=== PATIENT | female | born 2000 | race Two or more races ===

== ENCOUNTER 2019-11-20 00:36 | Inpatient (IN) | payer OTHER ==
[~2019-11-20] VITALS: Ht 172.7 cm; Wt 64.9 kg
[2019-11-20] MEDS ORDERED: PRENATAL TABLE1 EAC1 PO (00:43)
== END 2019-11-28 17:47 | disposition left against medical advice (07) | DRG 833 ==
LOC: OBS/DEL 00:36 → LDR 05:54 → OB/GYN 11-21 15:53
PROVIDERS: ADMIT Obstetrics & Gynecology
PROC: BY4FZZZ Ultrasonography of Third Trimester, Single Fetus (ICD-10-PCS; principal; 2019-11-20)
PROC: 4A1HXCZ Monitoring of Products of Conception, Cardiac Rate, External Approach (ICD-10-PCS; 2019-11-20)
DX: O60.03 Preterm labor without delivery, third trimester (principal); Z3A.34 34 weeks gestation of pregnancy

== ENCOUNTER 2019-12-15 08:05 | Inpatient (IN) | payer OTHER ==
[~2019-12-15] VITALS: Ht 172.7 cm; Wt 56.2 kg
[~2019-12-15 08:05] MED LIST: PRENATAL TABLE1 EAC1 PO
[2019-12-15] MEDS ORDERED: VALTREX1000 MG PO (08:37)
== END 2019-12-18 14:23 | disposition home or self-care (01) | DRG 788 ==
LOC: LDR 08:05 → OB/GYN 20:33
PROVIDERS: ADMIT Obstetrics & Gynecology
PROC: 3E033VJ Introduction of Other Hormone into Peripheral Vein, Percutaneous Approach (ICD-10-PCS; 2019-12-15)
PROC: 10907ZC Drainage of Amniotic Fluid, Therapeutic from Products of Conception, Via Natural or Artificial Opening (ICD-10-PCS; 2019-12-15)
PROC: 4A1HXCZ Monitoring of Products of Conception, Cardiac Rate, External Approach (ICD-10-PCS; 2019-12-15)
PROC: 10D00Z1 Extraction of Products of Conception, Low, Open Approach (ICD-10-PCS; principal; 2019-12-15 18:15)
DX: O61.0 Failed medical induction of labor (principal); Z3A.37 37 weeks gestation of pregnancy; Z37.0 Single live birth